=== PATIENT | female | born 1965 | race African-American/Black ===

== ENCOUNTER 2017-04-24 14:43 | Emergency (ER) | payer OTHER ==
[~2017-04-24] VITALS: Ht 167.6 cm; Wt 100.0 kg
[~2017-04-24 14:43] MED LIST: DOXY100T PO; VICOTAB4 PO; Z.0.NO CURRENT MEDS
[2017-04-24 14:49] VITALS: BP 142/81; PULSE 91; RESP 20; TEMP 98; O2SAT 100
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
[2017-04-24] MEDS ORDERED: ALPRAZolam 0.5 MG TAB PO ONE (15:00)
[2017-04-24] MEDS ORDERED: ACETAMINOPHEN 500 MG CPLT PO ONE (15:00)
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
[2017-04-24] MEDS ORDERED: IBUP-232 PO (16:04)
[2017-04-24] MEDS ORDERED: traMADol HCL 50 MG TAB PO ONE (16:15)
--- NOTE | 2017-04-25 16:23 | EKG ---
Date Performed: 04/24/2017 Time Performed: 15:01:11 PTAGE: 51 years EKG: Sinus rhythm NONSPECIFIC ST & T-WAVE ABNORMALITY BORDERLINE ECG NO PREVIOUS TRACING DOCTOR: Fred Petty Interpretating Date/Time 04/25/2017 16:22:35
== END 2017-04-24 16:31 | disposition home or self-care (01) ==
LOC: NEPD 14:43
DX: S20.219A Contusion of unspecified front wall of thorax, initial encounter (principal); S60.222A Contusion of left hand, initial encounter; V43.52XA Car driver injured in collision with other type car in traffic accident, initial encounter; Y92.414 Local residential or business street as the place of occurrence of the external cause; R94.31 Abnormal electrocardiogram [ECG] [EKG]
CPT/HCPCS: 71010; 73090; 73110; 73130; 93005; 99284